=== PATIENT | female | born 1965 | race Caucasian/White ===

== ENCOUNTER → 2017-02-04 | Outpatient (CLI) | payer BC | LOC: LAB 16:13 | DX: I10 Essential (primary) hypertension (principal); Z00.00 Encounter for general adult medical examination without abnormal findings; Z13.1 Encounter for screening for diabetes mellitus; Z13.220 Encounter for screening for lipoid disorders ==

== ENCOUNTER → 2017-04-25 | Outpatient (CLI) | payer BC | LOC: RAD 16:38 | DX: M94.0 Chondrocostal junction syndrome [Tietze] (principal); R07.81 Pleurodynia ==